=== PATIENT | female | born 1975 | race Caucasian/White ===

== ENCOUNTER → 2016-10-24 | Outpatient (CLI) | payer BC ==
[~2016-10-24] MED LIST: IBUP-103 PO; MULT-506 PO
[2016-10-24 14:57] VITALS: BP 115/66; PULSE 95; TEMP 36.7; O2SAT 96
--- NOTE | 2016-10-24 16:09 | Radiation Oncology Follow-Up ---
Radiation Oncology Follow-Up Date of Visit Oct 24, 2016. Reason For Visit One-month follow-up and cancer survivorship care plan Radiation Completion Date 09/20/16 Diagnosis (1) Breast cancer Status: Resolved Onset Date: 05/04/2016 Permanent Comment: Intermittent breast discomfort initial mammogram 2008 negative Abnormal left breast mammogram 02/10/2016 with continued breast discomfort Status post mammotome biopsy 03/08/2016 revealing DCIS Status post MRI guided left breast biopsy 03/27/2016 3 to 4 o'clock position, benign Status post lumpectomy Invasive ductal carcinoma and high-grade DCIS Estrogen receptor negative, progesterone receptor negative, HER-2/peggy negative Status post reexcision and sentinel lymph node biopsy 06/01/2016 Stage pT1a [id number] Status post completion of radiation therapy 09/20/2016. Received 6640 cGy. Last Edited By: Jackelyn Watt on Oct 24, 2016 15:59 History of Present Illness Ms. Granger is a 40-year-old female who was recently complaining of left lateral breast pain for approximately 4 months and also had some milky discharge on and off for many years. She did have a bilateral digital mammogram on 02/10/2016 which revealed a newly visualized loosely group of calcifications in the left upper outer quadrant. 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 The patient was seen by Dr. Rodríguez at the [facility] [place]. Dr. Rodríguez ordered a bilateral MRI of the breasts which was completed on 03/14/2016. The bilateral MRI of the breasts revealed a non-mass enhancement in the left breast which is a known malignancy, an additional non- mass enhancement in the left breast which is suspicious for malignancy at the 3 o'clock position and a third non-mass enhancement in the left breast that is suspicious for malignancy at the 9 o'clock position. The patient subsequently underwent MRI guided biopsy of both the 3:00 lesion in the left breast on 2016 which revealed benign breast tissue with tubular and sclerosing adenosis and columnar cell change. The patient elected to undergo a left breast lumpectomy on 05/04/[address] Alyssia Rodríguez which revealed invasive ductal carcinoma that was poorly differentiated and measured 2.1 mm in the greatest dimension. The tumor was grade 3 and poorly differentiated and there was no evidence of lymphovascular space invasion. The margins for invasive ductal carcinoma negative and the closest margin was 1 mm. There was also high-grade ductal carcinoma in situ present with comedonecrosis and the margins for ductal carcinoma in situ were positive. The tumor was estrogen receptor negative, progesterone receptor negative and HER-2 negative. The patient underwent a reexcision to obtain negative margins on 06/01/2016. Pathology revealed potential residual ductal carcinoma in situ in the new margin was 1.5 mm and was negative. 2 sentinel lymph nodes were also obtained in both were negative for metastatic carcinoma. The patient was seen by medical oncology, Dr. Rocha in the cancer [facility]. Dr. Rocha discussed potentially considering adjuvant chemotherapy however the patient wanted to consider a second opinion and is potentially seeing Dr. Tigre Figueredo from medical oncology. The patient states that she may or may not pursue another consultation for consideration of chemotherapy at the recommendation of Dr. Rodríguez. We are now seeing the patient in consultation to discuss the role of adjuvant radiation therapy. Overall, the patient is doing relatively well. She has healed up well from surgery. She has no significant complaints. She completed radiation therapy 09/20/2016. She received 6640 cGy. Interim History Over the past month she has a healing of the skin irritation that occurred towards the end of treatment. The areas of dryness have resolved. She is noted no masses or tenderness and no change in the axilla. She's had no swelling of her arm. The swelling of the breast has improved. She now feels that the left breast is smaller than the right. Follow-up mammography currently is not scheduled. She currently does not have follow-up with local oncology. She had seen Dr. Lee as second opinion. She also seen medical oncology physician in [place]. Her plan is to continue follow-up with Dr. Rodríguez. Allergies Coded Allergies: Penicillins (Verified Allergy, Unknown, Eyes swell, 07/11/16) Uncoded Allergies: RED DYE 40 (Allergy, Mild, 03/09/08) YELLOW DYE 10 (Allergy, Mild, 03/09/08) RED DYE (Allergy, Unknown, HIVES, ALSO YELLOW DYE, 04/15/09) Home Medications Scheduled Ibuprofen Tab (Advil), 400 MG PO DIRECTED Multivitamin (Multivitamin), 1 TAB PO DAILY Review of Systems Gastrointestinal: Symptoms: WNL Oral: Symptoms: No Problems Respiratory: Symptoms: WNL Urinary: Symptoms: WNL Skin: Symptoms: No Problems Other Skin Symptoms: still itchy a little tender in anticubital Breast: Right Upper Arm Measurement: 32.5 Right Mid Arm Measurement: 26.5 Right Wrist Measurement: 16.3 Left Upper Arm Measurement: 32.5 Left Mid Arm Measurement: 25.5 Left Wrist Measurement: 16.5 Physical Exam Vital Signs Date Time Temp Pulse Resp B/P (MAP) Pulse Ox O2 Delivery O2 Flow Rate FiO2 10/24/16 14:57 36.7 95 18 115/66 96 Pain: Patient Pain Scale: 0 - 10 Initial Pain Intensity: 0.0 Fatigue: None General Appearance: no apparent distress Eyes: normal inspection, EOMI ENT: normal ENT inspection, hearing grossly normal Neck: no adenopathy, thyroid normal Respiratory/Chest: lungs clear, no respiratory distress, no accessory muscle use Breast: Breast examination reveals well-healed incisions of the left breast. There is resolving hyperpigmentation. There are no masses or tenderness no axillary adenopathy. There is slight edema in the central lower portion of the breast. Using the Eugene score cosmesis she has a good outcome. The right breast showed no masses or tenderness and no axillary adenopathy. Cardiovascular: regular rate, rhythm, no gallop, no murmur Abdomen: non tender, soft, no organomegaly Extremities: no pedal edema Neurologic/Psychiatric: no motor/sensory deficits, alert, normal mood/affect Skin: warm/dry Assessment & Plan Plan: The patient's also seen and examined by Dr. Valentin. She'll continue follow -up with and her primary care physician. She did not undergo chemotherapy and was estrogen negative. She therefore does not require any antiestrogen therapy. We'll defer any further medical oncology recommendation or referral to Dr. Rodríguez. Today we completed a cancer survivorship care plan. A copy the document was given to the patient. Mammography was scheduled. Digital diagnostic mammogram will be performed on the left breast in 2 months. She'll then have bilateral mammography in 8 months. We'll follow recommendations on the radiologist thereafter. She'll likely have imaging of the left breast every 6 months for 2 years. We asked her to return to our office in 6 months. We discussed massage therapy to the mild edema of the breast. She does see a massage therapist. She'll continue treatment and follow -up with her therapist. We did briefly discuss measurement for a sleeve which may be beneficial when traveling long distances or flying. I also reviewed with her that we have patient navigation. This is available to her for discussion should she have any needs. I.e. possible referral for bra fitting and evaluation. ADDENDUM: I agree with note created by Jackelyn Watt PA-C. I reviewed the patient's chart and information with her. I have examined and evaluated the patient. I reviewed relevant clinical information and answered the patient's and /or family's questions. Total Time In Follow-Up I spent 20 minutes speaking to dictation and performing examination. I spent 20 minutes reviewing information, preparing the survivorship document, and completing this note. AK I spent 15 minutes examining and counseling the patient. BRICK CATCHER Copy To Jamaal Rascon D.O.Int.Med.; Alyssia Rodríguez D.O. Problem Qualifiers (1) Breast cancer: Breast location: upper outer quadrant of breast Estrogen receptor status: negative Patient sex: female Laterality: left Qualified Codes: C50.412 - Malignant neoplasm of upper-outer quadrant of left female breast; Z17.1 - Estrogen receptor negative status [ER-]
== END | disposition home or self-care (01) ==
LOC: C.ONC 14:47
PROVIDERS: ATTEND Physician Assistant Medical
DX: Z08 Encounter for follow-up examination after completed treatment for malignant neoplasm (principal); Z92.3 Personal history of irradiation; Z85.3 Personal history of malignant neoplasm of breast

== ENCOUNTER → 2016-12-27 | Outpatient (CLI) | payer BC ==
--- NOTE | 2016-12-28 13:44 | MAMMOGRAPHY REPORT ---
BILATERAL DIGITAL DIAGNOSTIC MAMMOGRAM TOMOSYNTHESIS WITH CAD: 12/27/2016 CLINICAL HISTORY: History of left breast cancer status post lumpectomy March 2016 as well as reexci efrain April 2016 as well as sentinel lymph node biopsy. The patient is also status post radiation therapy. She presents for her first follow-up on the left and for routine mammography on the right. TECHNIQUE: Breast tomosynthesis in addition to standard 2D mammography was performed. Current study was also evaluated with a Computer Aided Detection (CAD) system. Bilateral CC and MLO 2-D and tomosy nthesis images and spot magnification left CC and ML views were obtained. COMPARISON: Comparison is made to exams dated: 02/22/2016 stereotactic biopsy, 02/22/2016 mammogram, 02/10/2016 ultrasound, 02/10/2016 mammogram - [facility], and 02/16/2008. BREAST COMPOSITION: The tissue of both breasts is heterogeneously dense, which may obscure small mas ses. FINDINGS: There are new post surgical changes in the left upper outer quadrant from prior lumpectomy, including new density, architectural distortion, and surgical clips at the lumpectomy bed. There is mild diffuse left breast skin thickening, likely related to radiation therapy. Linear scar markers denote scars on the left breast. Spot magnification views of the left breast demonstrate a single pu nctate calcification superior to the surgical clips, without a suspicious mass or cluster of microcal cifications seen. The remainder of both breasts are stable compared to prior exams, without suspicious masses, calcific ations, or areas of architectural distortion noted. IMPRESSION: ACR-BI-RADS CATEGORY 3: PROBABLY BENIGN New post treatment changes in the left breast, without mammographic evidence of malignancy in either breast. Recommend follow-up diagnostic tomosynthesis mammograms of the left breast in 6 months to re evaluate posttreatment changes. The patient has been verbally notified of the results. Approximately 10% of breast cancers are not detected with mammography. A negative mammographic report should not delay biopsy if a clinically suggestive mass is present. Siria Worthington M.D. /:12/27/2016 14:35:15 Personal Care Home Administrator: Lisandra SALCEDO(Abhay)(Cassandra), [facility] letter sent: Personal History 3 BI-RADS Code: ACR-BI-RADS Category 3: Probably Benign
== END | disposition home or self-care (01) ==
LOC: C.MAMM 13:34
PROVIDERS: ATTEND Physician Assistant Medical
DX: C50.912 Malignant neoplasm of unspecified site of left female breast (principal); Z98.890 Other specified postprocedural states

== ENCOUNTER → 2017-01-18 | Outpatient (CLI) | payer BC ==
--- NOTE | 2017-01-18 16:16 | DIAGNOSTIC IMAGING REPORT ---
SOFT TISS HEAD/NECK-THYROID CLINICAL HISTORY: 41 years-old Female presenting with ABN IMAGING ON MRI. TECHNIQUE: Real-time grayscale and color Doppler ultrasound imaging of the thyroid and base of the neck was performed. COMPARISON: None. FINDINGS: Right lobe: Normal echogenicity and echotexture. The right lobe of the thyroid measures 5.2 x 2.7 x 2.6 cm. Interpolar to upper pole nodule measuring 3.7 x 1.8 x 2.0 cm, which is well-defined, wider than tall, slightly hypoechoic with internal vascularity on color Doppler. No calcifications. Left lobe: Normal echogenicity and echotexture. The left lobe of the thyroid measures 3.4 x 1.0 x 0.9 cm. No nodules. No parenchymal hyperemia. Isthmus: The isthmus measures 5 mm in thickness. No nodules. IMPRESSION: 3.7 cm nodule in the right lobe of the thyroid is intermediate in suspicion. Based on size, fine-needle aspiration is recommended per the [place] [employer] criteria. Electronically signed by: Isaias Smalls M.D. 01/18/2017 4:14 PM Dictated Date/Time: 01/18/2017 4:12 PM
== END | disposition home or self-care (01) ==
LOC: C.ULTR 15:45
PROVIDERS: ATTEND Surgery
DX: E04.1 Nontoxic single thyroid nodule (principal); C50.912 Malignant neoplasm of unspecified site of left female breast

== ENCOUNTER → 2017-01-24 | Outpatient (CLI) | payer BC ==
[2017-01-24 16:21] LABS: THYROID STIMULATING HORMONE 0.524 uIu/ml (0.300-4.500)
== END | disposition home or self-care (01) ==
LOC: C.LAB1850 14:20
PROVIDERS: ATTEND Obstetrics & Gynecology
DX: E04.1 Nontoxic single thyroid nodule (principal)

== ENCOUNTER → 2017-01-29 | Outpatient (CLI) | payer BC ==
--- NOTE | 2017-01-29 10:50 | Discharge Instructions ---
Discharge Instructions Procedure Procedure Date: Jan 29, 2017. Reason for visit: Thryoid Nodule. Discharge Discharge Date: Jan 29, 2017. Discharge Diagnosis: Right lobe thyroid nodule Instructions Activity Recommendations: No limitations Return to School/Work: no limitations Recommended Home Diet: Resume Previous Diet Provider Instructions: Ultrasound guided fine-needle aspiration of a right thyroid nodule is performed with 5 passes utilizing 25-gauge needles. The procedure was well tolerated and without immediate complication. ACTIVITY RECOMMENDATIONS: * Rest today. * Resume regular activity in one day. MEDICATIONS: * May take Tylenol or Ibuprofen as needed for pain. DIET: * Resume previous diet. SPECIAL CARE INSTRUCTIONS: Call your doctor if: * Temperature above 101 degrees F. * Pain not relieved by pain medicine ordered. * Increased drainage or redness from incision. * Notify your doctor with any questions or concerns. Call your doctor or go to the nearest Emergency Department if you experience: * Increased chest pain or shortness of breath. FOLLOW UP VISIT: Follow-up with Referring Physician as scheduled. Allergies Coded Allergies: Penicillins (Verified Allergy, Unknown, Eyes swell, 07/11/16) Uncoded Allergies: RED DYE 40 (Allergy, Mild, 03/09/08) YELLOW DYE 10 (Allergy, Mild, 03/09/08) RED DYE (Allergy, Unknown, HIVES, ALSO YELLOW DYE, 04/15/09) [place] Recommendations: Call your doctor if: * Temperature above 101 degrees * Pain not relieved by pain medicine ordered * There is increased drainage or redness from any incision * You have any unanswered questions or concerns. Your Doctors Instructions noted above were prepared by provider Abilio Bennett. Patient Signature Section: Patient Instructions Signature Page Stacey Granger Patient (or Guardian) Signature/Date: I have read and understand the instructions given to me by my caregivers. Caregiver/RN/Doctor Signature/Date: The above-named patient and/or guardian has received patient instructions on this date. + Original Patient Signature Page (only) stays with chart. Please make copy for patient.
--- NOTE | 2017-01-29 11:03 | DIAGNOSTIC IMAGING REPORT ---
ULTRASOUND-GUIDED FINE-NEEDLE ASPIRATION THYROID CLINICAL HISTORY: Right lobe thyroid nodule. COMPARISON STUDY: Thyroid ultrasound dated 01/18/2017. PROCEDURE: The risks, benefits, and alternatives to the procedure were discussed with the patient. Written informed consent was obtained. The patient was placed supine in ultrasound, and the 3.7 x 1.8 x 2.0 cm hypoechoic and hypervascular nodule in the right lobe of the thyroid was localized by ultrasound and selected for fine needle aspiration. The right neck was prepped and draped in the usual sterile fashion. The nodule was aspirated under ultrasound guidance with 5 passes utilizing 25-gauge needles. Specimens were reviewed by the pathologist in real-time. The patient tolerated the procedure well and left the department in satisfactory condition. IMPRESSION: Completed fine-needle aspiration of a right thyroid nodule as above. Electronically signed by: Abilio Bennett M.D. 01/29/2017 11:02 AM Dictated Date/Time: 01/29/2017 11:01 AM
== END | disposition home or self-care (01) ==
LOC: C.ULTR 09:51
PROVIDERS: ATTEND Obstetrics & Gynecology
DX: E04.1 Nontoxic single thyroid nodule (principal); D44.0 Neoplasm of uncertain behavior of thyroid gland

== ENCOUNTER → 2017-02-28 | Outpatient (CLI) | payer BC ==
[~2017-02-28] MED LIST changes: +HYDR1AER23 PR
== END | disposition home or self-care (01) ==
LOC: C.PAPS 12:13
PROVIDERS: ATTEND Obstetrics & Gynecology
DX: R87.612 Low grade squamous intraepithelial lesion on cytologic smear of cervix (LGSIL) (principal)

== ENCOUNTER → 2017-05-01 | Outpatient (CLI) | payer BC ==
[2017-05-01 14:02] VITALS: BP 104/66; PULSE 77; TEMP 36.8; O2SAT 98
--- NOTE | 2017-05-01 15:45 | Radiation Oncology Follow-Up ---
Radiation Oncology Follow-Up Date of Visit May 01, 2017. Reason For Visit Six-month follow-up Radiation Completion Date finished 09-20-2016 Diagnosis (1) Breast cancer Status: Resolved Onset Date: 05/04/2016 Histology Subtype: Ductal Stage: l Permanent Comment: Intermittent breast discomfort initial mammogram 2008 negative Abnormal left breast mammogram 02/10/2016 with continued breast discomfort Status post mammotome biopsy 03/08/2016 revealing DCIS Status post MRI guided left breast biopsy 03/27/2016 3 to 4 o'clock position, benign Status post lumpectomy Invasive ductal carcinoma and high-grade DCIS Estrogen receptor negative, progesterone receptor negative, HER-2/peggy negative Status post reexcision and sentinel lymph node biopsy 06/01/2016 Stage pT1a [id number] Status post completion of radiation therapy 09/20/2016. Received 6640 cGy. Last Edited By: Jackelyn Watt on Oct 24, 2016 15:59 History of Present Illness Ms. Granger had a complaint of left lateral breast pain for approximately 4 months and also had some milky discharge on and off for many years. She did have a bilateral digital mammogram on 02/10/2016 which revealed a newly visualized loosely group of calcifications in the left upper outer quadrant. 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 The patient was seen by Dr. Rodríguez at the [facility] [place]. Dr. Rodríguez ordered a bilateral MRI of the breasts which was completed on 03/14/2016. The bilateral MRI of the breasts revealed a non-mass enhancement in the left breast which is a known malignancy, an additional non- mass enhancement in the left breast which is suspicious for malignancy at the 3 o'clock position and a third non-mass enhancement in the left breast that is suspicious for malignancy at the 9 o'clock position. The patient subsequently underwent MRI guided biopsy of both the 3:00 lesion in the left breast on 2016 which revealed benign breast tissue with tubular and sclerosing adenosis and columnar cell change. The patient elected to undergo a left breast lumpectomy on 05/04/[address] Alyssia Rodríguez which revealed invasive ductal carcinoma that was poorly differentiated and measured 2.1 mm in the greatest dimension. The tumor was grade 3 and poorly differentiated and there was no evidence of lymphovascular space invasion. The margins for invasive ductal carcinoma negative and the closest margin was 1 mm. There was also high-grade ductal carcinoma in situ present with comedonecrosis and the margins for ductal carcinoma in situ were positive. The tumor was estrogen receptor negative, progesterone receptor negative and HER-2 negative. The patient underwent a reexcision to obtain negative margins on 06/01/2016. Pathology revealed potential residual ductal carcinoma in situ in the new margin was 1.5 mm and was negative. 2 sentinel lymph nodes were also obtained in both were negative for metastatic carcinoma. The patient was seen by medical oncology, Dr. Rocha in the cancer [facility]. Dr. Rocha discussed potentially considering adjuvant chemotherapy however the patient wanted to consider a second opinion and is potentially seeing Dr. Tigre Figueredo from medical oncology. The patient states that she may or may not pursue another consultation for consideration of chemotherapy at the recommendation of Dr. Rodríguez. We are now seeing the patient in consultation to discuss the role of adjuvant radiation therapy. Overall, the patient is doing relatively well. She has healed up well from surgery. She has no significant complaints. She completed radiation therapy 09/20/2016. She received 6640 cGy. Interim History She has been doing well over the past 6 months. She does have some mild lymphedema in the left arm. She was evaluated and was taught lymphedema therapy. Also massage therapy. This is helping the intermittent swelling of the arm. She noticed that the left nipple has a thickness of the skin. She denies pain in the breast. She has noted no masses and no change of the axilla. She was found to have a thyroid nodule. She had an FNA here that was nondiagnostic. She then saw a physician at [place] at [facility]. The thyroid was biopsied and was benign. She also followed up with endocrinology and saw Dr. Chaidez. She follows with a breast surgeon in [place]. She had recheck visit with examination and an MRI January 04, 2017. This showed post lumpectomy changes in the left breast at the 3 o'clock position she is due for mammography in February 2017. A linear mass enhancement in the left breast 10: 00 radian are less prominent today and are probably benign. Follow-up in 6 months was recommended. Recommend continued short-term follow-up. She has follow-up visit with the breast surgeon in July. She is unsure as to what other study she is having on that day also. She is likely scheduled for a MRI. She did undergo the recheck mammogram December 27, 2016. This showed new post therapy changes in the left breast without mammographic evidence of malignancy in either breast. Recommend follow-up diagnostic [place] synthesis mammograms of the left breast in 6 months to reevaluate post treatment changes. Allergies Coded Allergies: Penicillins (Verified Allergy, Unknown, Eyes swell, 07/11/16) Uncoded Allergies: RED DYE 40 (Allergy, Mild, 03/09/08) YELLOW DYE 10 (Allergy, Mild, 03/09/08) RED DYE (Allergy, Unknown, HIVES, ALSO YELLOW DYE, 04/15/09) Home Medications Scheduled Multivitamin (Multivitamin), 1 TAB PO DAILY Scheduled PRN Hydrocortisone/Pramoxine (Proctofoam Hc), 1 APPL [place] BID PRN for Pain Ibuprofen Tab (Advil), 400 MG PO for Moderate Pain Review of Systems Gastrointestinal: Symptoms: WNL Oral: Symptoms: No Problems Respiratory: Symptoms: WNL Urinary: Symptoms: WNL Skin: Symptoms: No Problems Breast: Right Upper Arm Measurement: 31.5 Right Mid Arm Measurement: 26.0 Right Wrist Measurement: 16.3 Left Upper Arm Measurement: 32.0 Left Mid Arm Measurement: 24.5 Left Wrist Measurement: 17.0 Arm Dominence: Right Patient Cosmetic Evaluation: Good Staff Cosmetic Evalaluation: Good Physical Exam Vital Signs Date Time Temp Pulse Resp B/P (MAP) Pulse Ox O2 Delivery O2 Flow Rate FiO2 05/01/17 14:02 36.8 77 16 104/66 98 Fatigue: None General Appearance: no apparent distress Eyes: normal inspection, EOMI ENT: normal ENT inspection, hearing grossly normal Neck: no adenopathy, thyroid normal Respiratory/Chest: lungs clear, no respiratory distress, no accessory muscle use Breast: Wrist examination reveals resolving edema of the left breast. There is mild thickness of the left nipple due to the edema. There is continued resolving hyperpigmentation. There are no masses or tenderness and no axillary adenopathy. Using the [place] score cosmesis she has a good outcome. The right breast showed no masses or tenderness and no axillary adenopathy. Cardiovascular: regular rate, rhythm, no gallop, no murmur Extremities: no pedal edema Neurologic/Psychiatric: no motor/sensory deficits, alert, normal mood/affect Skin: warm/dry Lymphatic: no adenopathy Pain Management Patient Reports Pain: No Side: Bilateral Patient Preferred Pain Scale: 0 - 10 Initial Pain Intensity: 0.0 Pain Management Plan She denies pain therefore requires no pain management. Laboratory Laboratory Results: not applicable Pathology Pathology Results: not applicable Imaging Imaging Studies: were reviewed Imaging Comments Reviewed in the interim history. Assessment & Plan Plan: Continue with scheduled mammography. She will have mammogram in June. She will be seeing her breast surgeon in [place] in July. She is likely planned for an MRI of the breast at that time also. She will continue massage therapy and lymphedema therapy. She was also seen and examined by Dr. Valentin. We asked her to return to our office in 1 year. She may call if she has any questions or concerns in the interim. Assessment & Plan (Attending) I agree with note created by Jackelyn Watt PA-C. I reviewed the patient's chart and information with her. I have examined and evaluated the patient. I reviewed relevant clinical information and answered the patient's and/or family' s questions. ELEVATOR ERECTOR HELPER Total Time In Follow-Up I spent 20 minutes speaking to the patient and performing examination. I spent 15 minutes reviewing information and completing this note. Total Time (Attending) In Follow-Up I spent 30 minutes examining and counseling the patient. I spent 15 minutes completing this note. ELEVATOR ERECTOR HELPER Copy To Tamela Stephens; Robin Sanders MD; Alyssia Rodríguez D.O. Problem Qualifiers (1) Breast cancer: Breast location: upper outer quadrant of breast Estrogen receptor status: negative Patient sex: female Laterality: left Qualified Codes: C50.412 - Malignant neoplasm of upper-outer quadrant of left female breast; Z17.1 - Estrogen receptor negative status [ER-]
== END | disposition home or self-care (01) ==
LOC: C.ONC 13:50
PROVIDERS: ATTEND Physician Assistant Medical
DX: Z08 Encounter for follow-up examination after completed treatment for malignant neoplasm (principal); Z92.3 Personal history of irradiation; Z85.3 Personal history of malignant neoplasm of breast

== ENCOUNTER → 2017-07-04 | Outpatient (CLI) | payer BC ==
--- NOTE | 2017-07-04 14:45 | MAMMOGRAPHY REPORT ---
UNILATERAL LEFT DIGITAL DIAGNOSTIC MAMMOGRAM TOMOSYNTHESIS WITH CAD: 07/04/2017 CLINICAL HISTORY: History of left breast cancer status post lumpectomy March 2016 as well as reexci efrain April 2016 as well as sentinel lymph node biopsy. The patient is also status post radiation therapy. The patient presents for second follow-up after treatment. She denies any new lumps or oth er complaints. TECHNIQUE: Breast tomosynthesis in addition to standard 2D mammography was performed. Current study was also evaluated with a Computer Aided Detection (CAD) system. Left CC and MLO 2D and tomosynthesi s images and spot magnification left CC and ML views were obtained. COMPARISON: Comparison is made to exams dated: 12/27/2016 mammogram, 02/22/2016 mammogram, 02/10/2016 ultrasound, 02/10/2016 mammogram - [facility], and 02/16/2008. BREAST COMPOSITION: The tissue of the left breast is heterogeneously dense, which may obscure small masses. FINDINGS: There has been no significant interval change compared to the prior exam. There are stable post surgical changes in the left upper outer quadrant from prior lumpectomy, including stable densi ty, architectural distortion, and surgical clips at the lumpectomy bed. Linear scar markers denote s cars on the left breast. Spot magnification views of the left breast demonstrate a single punctate be nign-appearing calcification superior to the surgical clips on the ML view, which is stable compared to the December 2016 exam. No suspicious masses, clusters of calcifications, or other suspicious abno rmalities are seen within the left breast. IMPRESSION: ACR-BI-RADS CATEGORY 3: PROBABLY BENIGN Stable posttreatment changes in the left breast, without mammographic evidence of malignancy in the l eft breast. Recommend bilateral diagnostic tomosynthesis mammograms in 6 months to reevaluate left b reast posttreatment changes and for routine mammography of the right breast. The patient has been verbally notified of the results. Approximately 10% of breast cancers are not detected with mammography. A negative mammographic report should not delay biopsy if a clinically suggestive mass is present. Siria Worthington M.D. /:07/04/2017 14:19:20 Legal Intern: Lorie SALCEDO(Abhay)(M), [facility] letter sent: Personal History 3 BI-RADS Code: ACR-BI-RADS Category 3: Probably Benign
== END | disposition home or self-care (01) ==
LOC: C.MAMM 13:49
PROVIDERS: ATTEND Physician Assistant Medical
DX: Z08 Encounter for follow-up examination after completed treatment for malignant neoplasm (principal); Z85.3 Personal history of malignant neoplasm of breast; Z92.3 Personal history of irradiation

== ENCOUNTER 2019-02-07 19:32 | Observation (INO) ==
[2019-02-07] MEDS ORDERED: CLINDAMYCIN 900 MG in DEXTROSE 5% 50 ML IV ONE (19:50)
[2019-02-07] MEDS ORDERED: VANCOMYCIN CONSULT ACTIVE PRN ×2 (19:50→22:28)
[2019-02-07] MEDS ORDERED: SODIUM CHLORIDE 0.9% 1000ML 1,000 ML IV ONE (19:50)
[2019-02-07] MEDS ORDERED: VANCOMYCIN HCL 1,500 MG in SODIUM CHLORIDE 0.9% 500 ML IV ONE (19:50)
[2019-02-07 20:17] LABS: Appearance Urine Clear (Clear); Bacteria Urine Automated 2+ (Negative); Bilirubin Urine Negative (Negative); Blood Urine Negative (Negative); Color Urine Yellow; Epithelial Cell Urine Auto >30 /lpf (0-5); Glucose Urine UA Negative (Negative); Ketones Urine Negative (Negative); Leukocyte Esterase Urine Trace (Negative); Nitrite Urine Negative (Negative); Protein Urine Negative (Negative); RBC Urine Automated 0-4 /hpf (0-4); Specific Gravity Urine 1.016 (1.000-1.030); Urobilinogen Urine Negative (Negative); pH Urine 5.5 (4.5-7.5)
[2019-02-07 20:22] LABS: Basophils # (auto) 0.04 K/uL (0-0.2); Basophils % (auto) 0.3 %; Eosinophils # (auto) 0.21 K/uL (0-0.5); Eosinophils % (auto) 1.8 %; Hematocrit (blood only) 35.4 % (37-47); Hemoglobin 12.1 g/dL (12.0-16.0); Immature Granulocytes # (auto) 0.04 K/uL (0.00-0.02); Immature Granulocytes % (auto) 0.3 %; Lymphocytes # (auto) 1.96 K/uL (1.2-3.4); Lymphocytes % (auto) 16.5 %; Mean Corpuscular Hemoglobin 28.5 pg (25-34); Mean Corpuscular Hgb Conc 34.2 g/dL (32-36); Mean Corpuscular Volume 83.3 fL (80-100); Mean Platelet Volume 9.1 fL (7.4-10.4); Monocytes # (auto) 0.61 K/uL (0.11-0.59); Monocytes % (auto) 5.1 %; Neutrophils # (auto) 9.03 K/uL (1.4-6.5); Platelet Count 286 K/uL (130-400); RDW Coefficient of Variation 13.9 % (11.5-14.5); RDW Standard Deviation 41.7 fL (36.4-46.3); Red Blood Count 4.25 M/uL (4.2-5.4); White Blood Count 11.89 K/uL (4.8-10.8)
--- NOTE | 2019-02-07 20:22 | XRay Report ---
XR chest 1V portable CLINICAL HISTORY: Sepsis dyspnea COMPARISON STUDY: No previous studies for comparison. FINDINGS: The bones soft tissues and hemidiaphragms are normal. The cardiomediastinal silhouette is n ormal. The lungs are clear. The pulmonary vasculature is normal. IMPRESSION: Negative chest. The above report was generated using voice recognition software. It may contain grammatical, syntax or spelling errors. Electronically signed by: Yong Carrington M.D. 02/07/2019 8:21 PM
[2019-02-07 20:33] LABS: Partial Thromboplastin Ratio 1.1; Partial Thromboplastin Time 30.8 Seconds (21.0-31.0); Prothrombin Time 10.3 Seconds (9.0-12.0)
[2019-02-07 20:37] LABS: Albumin Level 3.4 gm/dl (3.4-5.0); BUN Creatinine Ratio 12.6 (10-20); Calcium 8.7 mg/dl (8.5-10.1); Creatinine Clr Calc Pharmacy 89.9 ml/min; Est GFR (African American) 108.8; Est GFR (Non-African American) 93.9; Potassium 3.6 mmol/L (3.5-5.1)
[2019-02-07 20:40] LABS: Albumin Globulin Ratio 0.9 (0.9-2); Bilirubin,Total 0.3 mg/dl (0.2-1); Total Protein 7.4 gm/dl (6.4-8.2)
[2019-02-07] MEDS ORDERED: ACETAMINOPHEN 500 MG TAB PO STA (20:48)
--- NOTE | 2019-02-07 20:53 | Emergency Department Note ---
Entered by Jennifer Trejo acting as a scribe for Abilio Lopez MD History of Present Illness General Chief complaint: Infection Stated complaint: MASTECTOMY 3 WKS AGO,FEVER,RT SIDE WORSE Time Seen by Provider: 02/07/19 19:39 Source: patient History of Present Illness Onset (ago): day(s) 1 Location: chest Radiation: non-radiation Pain Consistency: + constant Maximum Pain Intensity: 5 Associated symptoms: + denies other symptoms (vomiting), + diaphoresis, + fever/chills and + other (nausea, pain and warmth to right breast area, trouble raising right arm, gas, bloating) The patient is a 43 year old female with a recent bilateral mastectomy performed 3 weeks ago at [facility] by Dr. Rodríguez and a history of recurrent breast cancer who presents to the Emergency Room with complaints of infection. She reports that post-surgery she had full bilateral ROM and no problems. However, 1 day ago the patient began to experience nausea, chills, diaphoresis and issues in her right breast area. She explains that this area suddenly felt compacted, painful, warm to touch, and now she has trouble raising her right arm. Additional associated symptoms include gas and bloating. She called Dr. Rodríguez today regarding her symptoms and spoke to the resident retail operations specialist. She states that she was instructed to go to her PCP but her PCP is currently out of town. She was then seen by [facility] today and sent here for further evaluation. The patient has been taking Ibuprofen at home for pain. Of n ote, the patient also reports a bruise on her abdomen and is unsure where it came from. She also includes that she is allergic to Penicillin and when she takes it, her throat swells. The patient denies vomiting and abdominal pain. She offers no additional concerns at this time. Home Medications Home Medications Medication Instructions Recorded Confirmed Type acetaminophen [Tylenol Extra 1,000 mg PO Q6H PRN 02/07/19 02/07/19 History Strength] ibuprofen 800 mg PO Q8H PRN 02/07/19 02/07/19 History umkskvvg-tzgi-PC-calcium-mins 1 tab PO DAILY 02/07/19 02/07/19 History [Women's One Daily] vitamin D3-vitamin K2 2 tab PO QAM 02/07/19 02/07/19 History Allergies Allergy/AdvReac Type Severity Reaction Status Date / Time Penicillins Allergy Severe Eyes and Verified 02/07/19 20:57 throat swelling RED DYE 40 Allergy Mild Hives Uncoded 02/07/19 20:57 YELLOW DYE 10 Allergy Mild Hives Uncoded 02/07/19 20:57 Past Med/Surg History Medical History Breast cancer Surgical History S/P mastectomy, bilateral Social History Preferred Language: Montserratian Beliefs That Will Affect Care: None Feels Safe at Home: Yes Smoking Status: Never smoker Review of Systems See HPI for pertinent positives & negatives. and A total of 10 systems reviewed and were otherwise negative Physical Exam Vital Signs Vital Signs - 24 hr 02/07/19 19:35 02/07/19 20:09 02/07/19 20:17 Temperature 37.2 C Temperature Source Oral Pulse Rate 93 H 101 H Pulse Rate [Bilateral Apical] 101 H Respiratory Rate 18 20 20 Respiratory Effort / Characteristics Non-Labored Respiratory Depth Normal Blood Pressure 130/81 Blood Pressure [Left Arm] Blood Pressure Mean 97 Blood Pressure Mean [Left Arm] Pulse Oximetry 98 96 99 Oxygen Delivery Method Room Air Room Air Room Air Sepsis Recent Fever Within 48 Hours Yes Sepsis New/Unexplained Change in Mental Status No Sepsis Action Taken by Nursing No Action Required 02/07/19 20:37 02/07/19 21:27 Temperature Temperature Source Pulse Rate Pulse Rate [Bilateral Apical] 98 H 91 H Respiratory Rate 18 18 Respiratory Effort / Characteristics Respiratory Depth Blood Pressure Blood Pressure [Left Arm] 133/67 Blood Pressure Mean Blood Pressure Mean [Left Arm] 89 Pulse Oximetry 99 100 Oxygen Delivery Method Room Air Room Air Sepsis Recent Fever Within 48 Hours Sepsis New/Unexplained Change in Mental Status Sepsis Action Taken by Nursing GENERAL: Patient is in no acute distress. HEENT: No acute trauma, normocephalic atraumatic, mucous membranes moist, no nasal congestion, no scleral icterus. NECK: No stridor, no adenopathy, no meningismus, trachea is midline. LUNGS: Clear to auscultation bilaterally, no wheeze, no rhonchi, breath sounds equal. CHEST: Bilateral mastectomy incisions, on the right side there is surrounding erythema and warmth, the area is quite tender to touch, pain in right axilla when trying to raise her right arm, no drainage from either incision. HEART: Without murmurs gallops or rubs, regular rate and rhythm. ABDOMEN: Soft, nontender, bowel sounds positive, no hernias, no peritonitis. EXTREMITIES: No cyanosis or edema, full range of motion of all the joints without pain or difficulty, no signs for acute trauma. NEUROLOGIC: Oriented x 3, no acute motor or sensory deficits, no focal weakness. SKIN: No rash, no jaundice, no diaphoresis. Course Course 1940: Past medical records reviewed. The patient was evaluated in room C10. A complete history and physical exam was performed. 2003: I spoke to Dr. Rodríguez who does not recommend imaging. She states to give the patient IV antibiotics and feels comfortable having her admitted here but states to call her back if there is anything abnormal on the lab work. 2013: I updated the patient to tell her that I spoke with Dr. Rodríguez. The patient and her are up to date on the plan of care. 2117: Dr. Oliver is aware of the patient getting admitted. The patient verbally expressed understanding and agreement of the treatment plan. The patient will be evaluated for further treatment. Administered Medications Vancomycin HCl 1,500 mg/ (Sodium Chloride) 530 mls @ 200 mls/hr IV NOW ONE Stop: 02/07/19 22:28 Last Admin: 02/07/19 21:24 Dose: 200 mls/hr Documented by: [id number] Discontinued Medications Acetaminophen (Tylenol) 1,000 mg PO NOW STA Stop: 02/07/19 20:49 Last Admin: 02/07/19 20:54 Dose: 1,000 mg Documented by: [id number] Clindamycin Phosphate 900 mg/ (Dextrose) 56 mls @ 112 mls/hr IV ONE ONE Stop: 02/07/19 20:19 Last Infusion: 02/07/19 21:23 Dose: 0 mls/hr Documented by: [id number] Admin: 02/07/19 20:31 Dose: 112 mls/hr Documented by: [id number] Sodium Chloride (Nss 1000ml) 1,000 mls @ 999 mls/hr IV .Q1H1M ONE Stop: 02/07/19 20:50 Last Infusion: 02/07/19 21:24 Dose: 0 mls/hr Documented by: [id number] Admin: 02/07/19 20:31 Dose: 999 mls/hr Documented by: [id number] Medical Decision Making Differential Diagnosis Differential diagnosis includes but is not limited to sepsis, bacteremia, abscess, cellulitis, post-op wound infection, dehydration, lymphadenopathy, PNA. Medical Records Attestation: I reviewed the patient's medical records. Home Medications Current Medication List: was personally reviewed by me Laboratory Data Attestation: I reviewed the patient's lab results. Result diagrams: 02/07/19 19:51 02/07/19 19:51 Lab Results 02/07/19 02/07/19 02/07/19 Range/Units 19:51 19:51 19:51 WBC 11.89 H (4.8-10.8) K/uL RBC 4.25 (4.2-5.4) M/uL Hgb 12.1 (12.0-16.0) g/dL Hct 35.4 L (37-47) % MCV 83.3 (80-100) fL MCH 28.5 (25-34) pg MCHC 34.2 (32-36) g/dL RDW Std Deviation 41.7 (36.4-46.3) fL RDW Coeff of [place]ao 13.9 (11.5-14.5) % Plt Count 286 (130-400) K/uL MPV 9.1 (7.4-10.4) fL Immature Gran % (Auto) 0.3 % Neut % (Auto) 76.0 % Lymph % (Auto) 16.5 % [place] % (Auto) 5.1 % Eos % (Auto) 1.8 % Baso % (Auto) 0.3 % Immature Gran # (Auto) 0.04 H (0.00-0.02) K/uL Neut # (Auto) 9.03 H (1.4-6.5) K/uL Lymph # (Auto) 1.96 (1.2-3.4) K/uL [place] # (Auto) 0.61 H (0.11-0.59) K/uL Eos # (Auto) 0.21 (0-0.5) K/uL Baso # (Auto) 0.04 (0-0.2) K/uL PT 10.3 (9.0-12.0) Seconds INR 1.0 (0.9-1.1) APTT 30.8 (21.0-31.0) Seconds PTT Ratio 1.1 Sodium (136-145) mmol/L Potassium (3.5-5.1) mmol/L Chloride (98-107) mmol/L Carbon Dioxide (21-32) mmol/L Anion Gap (3-11) BUN (7-18) mg/dl Creatinine (0.6-1.2) mg/dl Est Cr Clr Drug Dosing ml/min Est GFR ( Amer) Est GFR (Non-Af Amer) BUN/Creatinine Ratio (10-20) Glucose (70-99) mg/dl Lactate (0.4-2.0) mmol/L Calcium (8.5-10.1) mg/dl Total Bilirubin (0.2-1) mg/dl AST (15-37) U/L ALT (12-78) U/L Alkaline Phosphatase (45-117) U/L Total Protein (6.4-8.2) gm/dl Albumin (3.4-5.0) gm/dl Globulin (2.5-4.0) gm/dl Albumin/Globulin Ratio (0.9-2) Procalcitonin < 0.05 (0-0.5) ng/ml Urine Color Urine Appearance (Clear) Urine pH (4.5-7.5) Ur Specific [place] (1.000-1.030) Urine Protein (Negative) Urine Glucose (UA) (Negative) Urine Ketones (Negative) Urine Blood (Negative) Urine Nitrite (Negative) Urine Bilirubin (Negative) Urine Urobilinogen (Negative) Ur Leukocyte Esterase (Negative) Urine WBC (Auto) (0-5) /hpf Urine RBC (Auto) (0-4) /hpf U Hyaline Cast (Auto) (0-5) /lpf U Epithel Cells (Auto) (0-5) /lpf Urine Bacteria (Auto) (Negative) 02/07/19 02/07/19 02/07/19 Range/Units 19:51 19:51 20:08 WBC (4.8-10.8) K/uL RBC (4.2-5.4) M/uL Hgb (12.0-16.0) g/dL Hct (37-47) % MCV (80-100) fL MCH (25-34) pg MCHC (32-36) g/dL RDW Std Deviation (36.4-46.3) fL RDW Coeff of [place]ao (11.5-14.5) % Plt Count (130-400) K/uL MPV (7.4-10.4) fL Immature Gran % (Auto) % Neut % (Auto) % Lymph % (Auto) % [place] % (Auto) % Eos % (Auto) % Baso % (Auto) % Immature Gran # (Auto) (0.00-0.02) K/uL Neut # (Auto) (1.4-6.5) K/uL Lymph # (Auto) (1.2-3.4) K/uL [place] # (Auto) (0.11-0.59) K/uL Eos # (Auto) (0-0.5) K/uL Baso # (Auto) (0-0.2) K/uL PT (9.0-12.0) Seconds INR (0.9-1.1) APTT (21.0-31.0) Seconds PTT Ratio Sodium 136 (136-145) mmol/L Potassium 3.6 (3.5-5.1) mmol/L Chloride 106 (98-107) mmol/L Carbon Dioxide 23 (21-32) mmol/L Anion Gap 7.0 (3-11) BUN 10 (7-18) mg/dl Creatinine 0.77 (0.6-1.2) mg/dl Est Cr Clr Drug Dosing 89.9 ml/min Est GFR ( Amer) 108.8 Est GFR (Non-Af Amer) 93.9 BUN/Creatinine Ratio 12.6 (10-20) Glucose 150 H (70-99) mg/dl Lactate 1.1 (0.4-2.0) mmol/L Calcium 8.7 (8.5-10.1) mg/dl Total Bilirubin 0.3 (0.2-1) mg/dl AST 9 L (15-37) U/L ALT 16 (12-78) U/L Alkaline Phosphatase 123 H (45-117) U/L Total Protein 7.4 (6.4-8.2) gm/dl Albumin 3.4 (3.4-5.0) gm/dl Globulin 4.0 (2.5-4.0) gm/dl Albumin/Globulin Ratio 0.9 (0.9-2) Procalcitonin (0-0.5) ng/ml Urine Color Yellow Urine Appearance Clear (Clear) Urine pH 5.5 (4.5-7.5) Ur Specific [place] 1.016 (1.000-1.030) Urine Protein Negative (Negative) Urine Glucose (UA) Negative (Negative) Urine Ketones Negative (Negative) Urine Blood Negative (Negative) Urine Nitrite Negative (Negative) Urine Bilirubin Negative (Negative) Urine Urobilinogen Negative (Negative) Ur Leukocyte Esterase Trace H (Negative) Urine WBC (Auto) 5-10 H (0-5) /hpf Urine RBC (Auto) 0-4 (0-4) /hpf U Hyaline Cast (Auto) 1-5 (0-5) /lpf U Epithel Cells (Auto) >30 H (0-5) /lpf Urine Bacteria (Auto) 2+ H (Negative) Imaging Data Radiologist's Impression: Radiology results as stated below per my review and the radiologist's interpretation: XR chest 1V portable CLINICAL HISTORY: Sepsis dyspnea COMPARISON STUDY: No previous studies for comparison. FINDINGS: The bones soft tissues and hemidiaphragms are normal. The cardiomediastinal silhouette is normal. The lungs are clear. The pulmonary vasculature is normal. IMPRESSION: Negative chest. The above report was generated using voice recognition software. It may contain grammatical, syntax or spelling errors. Electronically signed by: Yong Carrington M.D. 02/07/2019 8:21 PM Blood Pressure Blood Pressure Findings: Elevated blood pressure Blood Pressure Disposition: further management by hospitalist [facility] Narrative There is a mild leukocytosis, this would be consistent with infection. No concerning anemia. No coagulopathy. No significant electrolyte abnormality or kidney failure. Lactic acid level is not significantly elevated making severe sepsis less likely. No worrisome liver enzyme elevation. Procalcitonin level was normal. Urinalysis does not show infection, some contamination was seen. Chest film does not show pneumonia or CHF. On exam, patient had a cellulitis on the right chest wall surrounding her right mastectomy incision. The patient presents with the sudden onset of symptoms in the last 24 hours. She had a fever and chills. She has a lot of pain in the area of the right chest wall and appears to have a right chest wall cellulitis. I spoke to the patient's surgeon at [facility]. The patient was felt appropriate for a stay at our hospital, transfer emergently was not felt warranted. IV antibiotic's were thought indicated. The patient received IV clindamycin and IV vancomycin. She received IV saline. She was given a dose of oral Tylenol. I talked to the patient about her findings, I consulted with case management. The on-call hospitalist has been consulted. IV antibiotic therapy is indicated. Impression & Plan Cellulitis, Wound infection, S/P mastectomy Discharge Plan Visit Data Chief Complaint: Infection Stated Complaint: MASTECTOMY 3 WKS AGO,FEVER,RT SIDE WORSE ED Provider: Abilio Lopez Discharge Problem: Cellulitis, Wound infection, S/P mastectomy Patient Disposition: Being Evaluated by Hospitalist Forms Stand Alone Forms: My [facility] Prescriptions Prescriptions: No Action acetaminophen [Tylenol Extra Strength] 500 mg Tablet 1,000 mg PO Q6H PRN (Reason: Fever Or Pain) RF: 0 ibuprofen 200 mg Tablet 800 mg PO Q8H PRN (Reason: Fever Or Pain) RF: 0 vitamin D3-vitamin K2 1000-90 unit-mcg Tablet,Disintegrating 2 tab PO QAM RF: 0 Women's One Daily 18 mg iron-400 mcg-500 mg Ca Tablet 1 tab PO DAILY RF: 0 Referrals Referrals: Maria Del Rosario Peña DO [Primary Care Provider] - Discharge Problem: Cellulitis Qualifiers: Site of cellulitis: unspecified site Qualified Code(s): L03.90 - Cellulitis, unspecified S/P mastectomy Qualifiers: Laterality: bilateral Qualified Code(s): Z90.13 - Acquired absence of bilateral breasts and nipples The scribe's documentation has been prepared under my direction and personally reviewed by me in its entirety. I confirm that the note above accurately reflects all work, treatment, procedures, and medical decision making performed by me.
--- NOTE | 2019-02-07 21:43 | History & Physical Report ---
Date of Service February 07, 2019 Assessment & Plan (1) Wound infection: 43yo F PMH recurrent ER negative breast cancer, anxiety/PTSD presents with R-sided wound infection 3 weeks s/p bilateral mastectomy. R-sided mastectomy surgical wound infection/Cellulitis -Will start on vanc and aztreonam -Blood cultures pending. -UA dirty; no UTI symptoms; culture is pending -Monitor vitals on med/surg with tele overnight, will likely be able to transfer to medical -Tylenol, toradol, morphine for pain prn Breast cancer s/p bilateral mastectomy -[place] of [place] [facility] [place] -Pt received radiation with initial cancer of L breast -Has not yet met with Dr. Mon/ No chemo to date or planned Anxiety/PTSD -Pt states she requires xanax with imaging/procedures -Declines prn meds here, not currently anxious. Code: full Dispo: med tele DVTP: lovenox (2) Cellulitis: (3) S/P mastectomy, bilateral: (4) Breast cancer: (5) Anxiety: (6) PTSD (post-traumatic stress disorder): History of Present Illness Chief Complaint: Post-op Incision Infection Primary Care Provider: Maria Del Rosario Peña DO Patient is a pleasant 43yo F PMH recurrent breast cancer, anxiety/PTSD presents 3 weeks after bilateral mastectomy with a 24 hour h/o R mastectomy incision pain, subjective fever, nausea, chills, diaphoresis, and warmth/tenderness of R incision site. She also describes a sensation of being unable to lift her R arm normally. Patient notes that things had been going well post-operatively, and had no issues with the incision sites/wound care prior to yesterday. Surgery was performed at [facility], and after symptom onset, she called the surgical service, who instructed her to see her PCP. Her PCP was out of town, so she went to [facility] today, and they instructed her to present to the ER. Temp at med [facility] was 99._(something, she could not recall). She had not taken her temp at home, but notes she felt much worse at home the day prior to presenting to [facility]. Dr. Lopez in ER spoke with [place] [facility] [place]. Rodríguez, who did not feel at this time transfer to [place] was necessary and did not recommend imaging at this time. In the ER, labs significant for WBC 11.89, normal BMP, normal LFTs, negative procal, dirty UA. Blood and urine cultures were sent. She was given tylenol, started on clinda, vanc. Afebrile, HR high 90s. Allergies Allergy/AdvReac Type Severity Reaction Status Date / Time Penicillins Allergy Severe Eyes and Verified 02/07/19 20:57 throat swelling RED DYE 40 Allergy Mild Hives Uncoded 02/07/19 20:57 YELLOW DYE 10 Allergy Mild Hives Uncoded 02/07/19 20:57 Home Medications Home Medications Medication Instructions Recorded Confirmed Type Women's One Daily 1 tab PO DAILY 02/07/19 02/07/19 History acetaminophen [Tylenol Extra 1,000 mg PO Q6H PRN 02/07/19 02/07/19 History Strength] ibuprofen 800 mg PO Q8H PRN 02/07/19 02/07/19 History vitamin D3-vitamin K2 2 tab PO QAM 02/07/19 02/07/19 History sulfamethoxazole-trimethoprim 1 tab PO BID 7 Days #13 tab 02/08/19 Rx [Bactrim DS] Past Med/Surg History Medical History Breast cancer Surgical History S/P mastectomy, bilateral Social History Preferred Language: Romansh Communication Ability: Effective [employer] Operator Required: No Beliefs That Will Affect Care: None Current Living Situation: Spouse Feels Safe at Home: Yes Safety Concerns: Feels Safe At This Time Smoking Status: Never smoker Hx Alcohol Use: Yes Alcohol type: wine and hard liquor Hx Substance Use: No Review of Systems Review of Systems: All systems reviewed & are unremarkable except as noted in HPI & below Constitutional: + fever, + chills and + body aches Respiratory: no cough and no dyspnea Cardiovascular: no chest pain, no dyspnea on exertion, no palpitations, no lightheadedness, no syncope and no edema Gastrointestinal: + bloating and + nausea (resolved) Genitourinary: no dysuria, no urinary frequency, no urinary hesitancy and no hematuria Musculoskeletal: + stiffness, + limited range of motion and + myalgia of affected R arm Integumentary: + erythema (of R mastectomy incision) Physical Exam Constitutional: WD/WN, vitals as above Eyes: PERRL, conjunctivae normal, anicteric sclerae ENMT: external ear and nose normal, oropharynx normal Neck: normal visual inspection Respiratory: normal respiratory effort, lungs clear to auscultation Cardiovascular: RRR, no murmur, no edema Chest (Breasts): Additional Comments: Bilateral mastectomy. Incision on L c/d/i. R incision with more erythema, induration around incision, no drainage noted. Gastrointestinal (Abdomen): normal bowel sounds, soft, nontender, no hepatosplenomegaly Musculoskeletal: no cyanosis or clubbing, extremities motor strength 5/5 Skin: + induration and + wound Neurologic: PERRL, EOMI, accommodation nl, no face palsy, no dysarthria Psychiatric: A+Ox3, euthymic affect Results & Data Vital Signs (Past 12 Hours) Vital Signs Temp Pulse Pulse Resp BP BP Pulse Ox 02/07/19 21:27 91 H 18 100 02/07/19 20:37 98 H 18 133/67 99 02/07/19 20:17 101 H 20 99 02/07/19 20:09 101 H 20 96 02/07/19 19:35 99.0 F 93 H 18 130/81 98 Laboratory Results 02/07/19 02/07/19 02/07/19 Range/Units 20:08 19:51 19:51 WBC (4.8-10.8) K/uL RBC (4.2-5.4) M/uL Hgb (12.0-16.0) g/dL Hct (37-47) % MCV (80-100) fL MCH (25-34) pg MCHC (32-36) g/dL RDW Std Deviation (36.4-46.3) fL RDW Coeff of Bao (11.5-14.5) % Plt Count (130-400) K/uL MPV (7.4-10.4) fL Immature Gran % (Auto) % Neut % (Auto) % Lymph % (Auto) % [place] % (Auto) % Eos % (Auto) % Baso % (Auto) % Immature Gran # (Auto) (0.00-0.02) K/uL Neut # (Auto) (1.4-6.5) K/uL Lymph # (Auto) (1.2-3.4) K/uL [place] # (Auto) (0.11-0.59) K/uL Eos # (Auto) (0-0.5) K/uL Baso # (Auto) (0-0.2) K/uL PT (9.0-12.0) Seconds INR (0.9-1.1) APTT (21.0-31.0) Seconds PTT Ratio Sodium 136 (136-145) mmol/L Potassium 3.6 (3.5-5.1) mmol/L Chloride 106 (98-107) mmol/L Carbon Dioxide 23 (21-32) mmol/L Anion Gap 7.0 (3-11) BUN 10 (7-18) mg/dl Creatinine 0.77 (0.6-1.2) mg/dl Est Cr Clr Drug Dosing 89.9 ml/min Est GFR ( Amer) 108.8 Est GFR (Non-Af Amer) 93.9 BUN/Creatinine Ratio 12.6 (10-20) Glucose 150 H (70-99) mg/dl Lactate 1.1 (0.4-2.0) mmol/L Calcium 8.7 (8.5-10.1) mg/dl Total Bilirubin 0.3 (0.2-1) mg/dl AST 9 L (15-37) U/L ALT 16 (12-78) U/L Alkaline Phosphatase 123 H (45-117) U/L Total Protein 7.4 (6.4-8.2) gm/dl Albumin 3.4 (3.4-5.0) gm/dl Globulin 4.0 (2.5-4.0) gm/dl Albumin/Globulin Ratio 0.9 (0.9-2) Procalcitonin (0-0.5) ng/ml Urine Color Yellow Urine Appearance Clear (Clear) Urine pH 5.5 (4.5-7.5) Ur Specific [place] 1.016 (1.000-1.030) Urine Protein Negative (Negative) Urine Glucose (UA) Negative (Negative) Urine Ketones Negative (Negative) Urine Blood Negative (Negative) Urine Nitrite Negative (Negative) Urine Bilirubin Negative (Negative) Urine Urobilinogen Negative (Negative) Ur Leukocyte Esterase Trace H (Negative) Urine WBC (Auto) 5-10 H (0-5) /hpf Urine RBC (Auto) 0-4 (0-4) /hpf U Hyaline Cast (Auto) 1-5 (0-5) /lpf U Epithel Cells (Auto) >30 H (0-5) /lpf Urine Bacteria (Auto) 2+ H (Negative) 02/07/19 02/07/19 02/07/19 Range/Units 19:51 19:51 19:51 WBC 11.89 H (4.8-10.8) K/uL RBC 4.25 (4.2-5.4) M/uL Hgb 12.1 (12.0-16.0) g/dL Hct 35.4 L (37-47) % MCV 83.3 (80-100) fL MCH 28.5 (25-34) pg MCHC 34.2 (32-36) g/dL RDW Std Deviation 41.7 (36.4-46.3) fL RDW Coeff of [place]ao 13.9 (11.5-14.5) % Plt Count 286 (130-400) K/uL MPV 9.1 (7.4-10.4) fL Immature Gran % (Auto) 0.3 % Neut % (Auto) 76.0 % Lymph % (Auto) 16.5 % [place] % (Auto) 5.1 % Eos % (Auto) 1.8 % Baso % (Auto) 0.3 % Immature Gran # (Auto) 0.04 H (0.00-0.02) K/uL Neut # (Auto) 9.03 H (1.4-6.5) K/uL Lymph # (Auto) 1.96 (1.2-3.4) K/uL [place] # (Auto) 0.61 H (0.11-0.59) K/uL Eos # (Auto) 0.21 (0-0.5) K/uL Baso # (Auto) 0.04 (0-0.2) K/uL PT 10.3 (9.0-12.0) Seconds INR 1.0 (0.9-1.1) APTT 30.8 (21.0-31.0) Seconds PTT Ratio 1.1 Sodium (136-145) mmol/L Potassium (3.5-5.1) mmol/L Chloride (98-107) mmol/L Carbon Dioxide (21-32) mmol/L Anion Gap (3-11) BUN (7-18) mg/dl Creatinine (0.6-1.2) mg/dl Est Cr Clr Drug Dosing ml/min Est GFR ( Amer) Est GFR (Non-Af Amer) BUN/Creatinine Ratio (10-20) Glucose (70-99) mg/dl Lactate (0.4-2.0) mmol/L Calcium (8.5-10.1) mg/dl Total Bilirubin (0.2-1) mg/dl AST (15-37) U/L ALT (12-78) U/L Alkaline Phosphatase (45-117) U/L Total Protein (6.4-8.2) gm/dl Albumin (3.4-5.0) gm/dl Globulin (2.5-4.0) gm/dl Albumin/Globulin Ratio (0.9-2) Procalcitonin < 0.05 (0-0.5) ng/ml Urine Color Urine Appearance (Clear) Urine pH (4.5-7.5) Ur Specific [place] (1.000-1.030) Urine Protein (Negative) Urine Glucose (UA) (Negative) Urine Ketones (Negative) Urine Blood (Negative) Urine Nitrite (Negative) Urine Bilirubin (Negative) Urine Urobilinogen (Negative) Ur Leukocyte Esterase (Negative) Urine WBC (Auto) (0-5) /hpf Urine RBC (Auto) (0-4) /hpf U Hyaline Cast (Auto) (0-5) /lpf U Epithel Cells (Auto) (0-5) /lpf Urine Bacteria (Auto) (Negative) Code Status & VTE Plan Code Status Full VTE Prophylaxis Plan VTE Prophylaxis will be ordered: Yes Supervising Physician Co-Signing Physician Notes Attending addendum: I have physically seen this patient, have supervised the medical residents activities, and agree with the H&P unless as otherwise noted. Assessment and Plan: Right-sided mastectomy postsurgical wound infection/cellulitis- Placed on vancomycin IV and aztreonam IV. Follow blood culture and sensitivity reports. Surgeon from [facility], Dr. Rodríguez is aware and follow-up will be arranged. Acetaminophen 650 mg p.o. every 6 hours PRN mild pain or temperature. Toradol 15 mg IV every 6 hours PRN moderate pain. Morphine 2 mg IV every 4 hours as needed severe pain. Zofran 4 mg IV every 6 hours as needed. Remaining orders and notations as noted. Resident Activity Tracking Resident Involvement: Resident Care Provided Care Provided: Adult Hospital Medicine (1) Cellulitis Site of cellulitis: unspecified site Qualified Code(s): L03.90 - Cellulitis, unspecified
[2019-02-07] MEDS ORDERED: MoRPHine SULFATE 2 MG/ML CARP IV PRN (22:27)
[2019-02-07] MEDS ORDERED: ACETAMINOPHEN 325 MG TAB PO PRN (22:28)
[2019-02-07] MEDS ORDERED: MAGNESIUM HYDROXIDE SUSP 30 ML UDC PO PRN (22:28)
[2019-02-07] MEDS ORDERED: ALUMINUM/MAGNESIUM SUSP 30 ML UDC PO PRN (22:28)
[2019-02-07] MEDS ORDERED: POLYETHYLENE (MIRALAX) 17 GM PACK PO PRN (22:28)
[2019-02-07] MEDS ORDERED: ONDANSETRON INJ 2 MG/ML 2 ML VIAL IV PRN (22:28)
[2019-02-07] MEDS ORDERED: VANCOMYCIN HCL 1,000 MG in SODIUM CHLORIDE 0.9% 500 ML IV SCH (22:28)
[2019-02-08] MEDS: AZTREONAM 2,000 MG in DEXTROSE 5% 100 ML IV SCH ×2 (00:09→08:14)
[2019-02-08] MEDS: KETOROLAC TROMETHAMINE 10 MG TABLET PO PRN ×2 (00:39→09:45)
[2019-02-08 06:48] LABS: Basophils # (auto) 0.02 K/uL (0-0.2); Basophils % (auto) 0.2 %; Eosinophils # (auto) 0.51 K/uL (0-0.5); Eosinophils % (auto) 6.2 %; Hematocrit (blood only) 32.6 % (37-47); Hemoglobin 11.1 g/dL (12.0-16.0); Immature Granulocytes # (auto) 0.02 K/uL (0.00-0.02); Immature Granulocytes % (auto) 0.2 %; Lymphocytes # (auto) 1.81 K/uL (1.2-3.4); Mean Corpuscular Hemoglobin 28.5 pg (25-34); Mean Corpuscular Volume 83.6 fL (80-100); Mean Platelet Volume 9.3 fL (7.4-10.4); Monocytes % (auto) 6.1 %; Neutrophils # (auto) 5.36 K/uL (1.4-6.5); Neutrophils % (auto) 65.3 %; Platelet Count 246 K/uL (130-400); RDW Coefficient of Variation 14.1 % (11.5-14.5); RDW Standard Deviation 42.7 fL (36.4-46.3); White Blood Count 8.22 K/uL (4.8-10.8)
[2019-02-08 07:16] VITALS: O2SAT 98
[2019-02-08 07:20] LABS: BUN Creatinine Ratio 14.5 (10-20); Calcium 8.3 mg/dl (8.5-10.1); Creatinine Clr Calc Pharmacy 113.9 ml/min; Est GFR (African American) 124.5; Est GFR (Non-African American) 107.4; Potassium 4.1 mmol/L (3.5-5.1)
[2019-02-08] MEDS ORDERED: ENOXAPARIN INJ 40 MG/0.4 ML SYR SQ SCH (09:00)
[2019-02-08] MEDS ORDERED: VANCOMYCIN HCL 1,250 MG in SODIUM CHLORIDE 0.9% 250 ML IV SCH ×2 (09:00→17:00)
[2019-02-08 11:16] VITALS: BP 106/69; TEMP 97.9
[2019-02-08] MEDS ORDERED: SULFAMETHOXAZOLE/TRIMETHOPRIM DS 800/160MG TAB PO ONE (12:00)
[2019-02-08] MEDS ORDERED: SEPTRA DS HOME PACK 1 EA VIAL PO ONE (12:25)
[2019-02-08 14:05] VITALS: PULSE 85
--- NOTE | 2019-02-09 04:04 | Billing Data ---
Coding Level of Care Code 70105 OBS Care - Level 3
[2019-02-09] MEDS ORDERED: VANCOMYCIN TROUGH ONE (08:30)
--- NOTE | 2019-02-12 14:50 | Discharge Summary ---
Date of Service February 08, 2019 Admission HPI Per Admitting Provider Patient is a pleasant 43yo F PMH recurrent breast cancer, anxiety/PTSD presents 3 weeks after bilateral mastectomy with a 24 hour h/o R mastectomy incision pain, subjective fever, nausea, chills, diaphoresis, and warmth/tenderness of R incision site. She also describes a sensation of being unable to lift her R arm normally. Patient notes that things had been going well post-operatively, and had no issues with the incision sites/wound care prior to yesterday. Surgery was performed at [facility], and after symptom onset, she called the surgical service, who instructed her to see her PCP. Her PCP was out of town, so she went to [facility] today, and they instructed her to present to the ER. Temp at [facility] was 99._(something, she could not recall). She had not taken her temp at home, but notes she felt much worse at home the day prior to presenting to [facility] Dr. Lopez in ER spoke with surgeon at [facility], Dr. Rodríguez, who did not feel at this time transfer to [place] was necessary and did not recommend imaging at this time. In the ER, labs significant for WBC 11.89, normal BMP, normal LFTs, negative procal, dirty UA. Blood and urine cultures were sent. She was given tylenol, started on clinda, vanc. Afebrile, HR high 90s. Admission Exam Per Admitting Provider Constitutional: WD/WN, vitals as above Eyes: PERRL, conjunctivae normal, anicteric sclerae ENMT: external ear and nose normal, oropharynx normal Neck: normal visual inspection Respiratory: normal respiratory effort, lungs clear to auscultation Cardiovascular: RRR, no murmur, no edema Chest (Breasts): Additional Comments: Bilateral mastectomy. Incision on L c/d/i. R incision with more erythema, induration around incision, no drainage noted. Gastrointestinal (Abdomen): normal bowel sounds, soft, nontender, no hepatosplenomegaly Musculoskeletal: no cyanosis or clubbing, extremities motor strength 5/5 Skin: + induration and + wound Neurologic: PERRL, EOMI, accommodation nl, no face palsy, no dysarthria Psychiatric: A+Ox3, euthymic affect Principal Diagnosis Post operative infection Discharge Exam Constitutional WD/WN, vitals as above Eyes + anicteric sclerae; normal pupil size Neck normal visual inspection and trachea midline Respiratory normal respiratory effort, lungs clear to auscultation Cardiovascular RRR, no murmur, no edema Chest (Breasts) Additional Comments: Healing surgical scars from b/l mastectomy. Mild dark erythema but no cellulitis present. Tender areas to palpation over right upper outer quadrant of prior breast tissue area (not present on left), tender axilla. No pus discharge. Gastrointestinal (Abdomen) normal bowel sounds, soft, nontender, no hepatosplenomegaly Musculoskeletal no cyanosis or clubbing, extremities motor strength 5/5 Neurologic moves all extremities and awake; no focal motor deficits Psychiatric A+Ox3, euthymic affect Discharge Data Allergies Allergy/AdvReac Type Severity Reaction Status Date / Time Penicillins Allergy Severe Eyes and Verified 02/07/19 20:57 throat swelling RED DYE 40 Allergy Mild Hives Uncoded 02/07/19 20:57 YELLOW DYE 10 Allergy Mild Hives Uncoded 02/07/19 20:57 Consultations 02/07/19 20:44 ED Decision to Admit Stat Hospital Course (1) Wound infection: Stacey Man is a 43 year old female who was observed overnight at [facility] due to worsening pectoral and axillary pain with associated chills. She was diagnosed with post operative wound infection and treated with IV antibiotics overnight. No cellulitis was noted in the morning. Her care was discussed with her surgeon Dr Rodríguez and agreed with discharge with course of Bactrim for 7 day course. She was recommended to follow up with her PCP or surgeon within the next week. Blood cultures still pending at this time, she will be called if positive. (2) Cellulitis: (3) S/P mastectomy, bilateral: (4) Breast cancer: Total Time Total Time Spent Total Time Spent (In Minutes): 55 Total Time Includes: Examination of the Patient, Discharge Planning and Medication Reconciliation Discharge Plan Discharge Items Patient Disposition: Home - Self-Care Reason For Visit: POST-OPERATIVE INFECTION Discharge Diagnosis: Post operative infection Activity: Resume your previous activity Non-emergency contact: Surgeon Call non-emergency contact if: you have any medication questions and your symptoms worsen Follow-up/Referrals: Maria Del Rosario Peña DO [Primary Care Provider] - Diet: Regular Addtl Attending Provider Instructions: You were observed overnight at [facility] due to worsening pec shonna and axillary pain with associated chills. You were diagnosed with post operative wound infection and treated with IV antibiotics overnight. Your care was discussed with your surgeon Dr Rodríguez and you will be discharged with oral antibiotics for a 7 day course. Please follow up with your surgeon or primary care physician for a wound recheck within the next week. If you are to get worse either with chills or significantly worse pain on oral antibiotics please return to the emergency room. If your blood culture become positive you will be called. Kind regards, Dr Sunil Cordero Pending Studies at Discharge: Yes (Blood cultures) Stand-Alone Forms: My [facility], Smoking Cessation Medications and DC Order Prescriptions: New sulfamethoxazole-trimethoprim [Bactrim DS] 800-160 mg tablet 1 tab PO BID 7 Days Qty: 13 RF: 0 Continued acetaminophen [Tylenol Extra Strength] 500 mg Tablet 1,000 mg PO Q6H PRN (Reason: Fever Or Pain) RF: 0 ibuprofen 200 mg Tablet 800 mg PO Q8H PRN (Reason: Fever Or Pain) RF: 0 vitamin D3-vitamin K2 1000-90 unit-mcg Tablet,Disintegrating 2 tab PO QAM RF: 0 Women's One Daily 18 mg iron-400 mcg-500 mg Ca Tablet 1 tab PO DAILY RF: 0 Discharge Orders: Discharge Order (Routine); Ordered 02/08/19 Ordered By: Sunil Cordero Admission Data Admit Date/Time: 02/07/19 21:39 Attending Provider: Sunil Cordero Admit Provider: Alma Chambers Primary Care Provider: Maria Del Rosario Peña Other Providers: Hermelindo Oliver Other Interventions: Discharge Summary Assessment (RN) Last Done: 02/08/19 14:04 DC Date/Time DO NOT enter until pt leaves facility: 02/08/19 14:58
== END 2019-02-08 14:58 | disposition home or self-care (01) ==
LOC: ED 19:32 → 2N 21:27 → INTOOBSV 21:27 → SUATTDRO 21:39 → 2N 22:14